=== PATIENT | female | born 1950 | race African-American/Black ===

== ENCOUNTER 2017-12-28 20:55 | Observation (INO) | payer OTHER ==
[~2017-12-28] VITALS: Ht 160 cm; Wt 131.8 kg
--- NOTE | ~2017-12-28 | OP ---
PATIENT NAME: PEDRO MARTÍNEZ MEDICAL RECORD: [id number] :[birth year] LOCATION:[facility] ADMISSION DATE:12/28/17 SURGEON: ANDERSON BANKS MD DATE OF OPERATION: 12/29/2017 PROCEDURES: 1. Left heart catheterization. 2. Selective coronary angiography. 3. Left ventriculogram. INDICATION: Chest pain, compatible with angina. PROCEDURE IN DETAIL: After informed consent was obtained with detailed description of risks and benefits as well as alternative therapies, the patient elected to proceed with angiogram and heart catheterization. The right femoral area was prepped and draped in normal sterile fashion. Right femoral artery was cannulated via modified Seldinger technique with placement of 6-Faroese sheath. All catheters were exchanged through this sheath. FINDINGS: The left ventriculogram was performed in standard 30-degree LENNON view, reveals good cardiac wall motion throughout all segments. Overall ejection fraction estimated at 60%. SELECTIVE CORONARY ANGIOGRAPHY: Left main, left anterior descending, left circumflex, and right coronary artery are all smooth-walled vessels with no angiographic evidence of coronary disease. OVERALL IMPRESSION: 1. No angiographic evidence of coronary disease. 2. Normal left heart pressures. 3. Normal left ventricular systolic function. Chest pain is noncardiac in etiology. No further cardiac workup needs to be ascertained. TRANSINT:[id number] Voice Confirmation ID: [id number] DOCUMENT ID: [id number] ANDERSON BANKS MD at 1950 CC: [id number] DICTATION DATE: 12/29/17 1402 RESTAURANT AREA DIRECTOR: 12/29/17 1411 DIS IN 12/29/17 [place] [id number] [place] [id number]
--- NOTE | ~2017-12-28 | HEMODYNAMI ---
PATIENT:PEDRO MARTÍNEZ MEDICAL RECORD: [id number] : 50 LOCATION:[facility] D.2107 ADMISSION DATE: 12/28/17 Generatedon:12/29/201714:04 Patient name: PEDRO MARTÍNEZ Patient #: [id number] SSN: DO B: 1950 Date of study: 12/29/2017 Page: Of Hemodynamic Procedure Report Patient Data Patient Demographics Procedure consent was obtained First Name: PEDRO Gender: Female Last Name: MAUIRCIO : 1950 [facility] Initial: LEATHA Age: 67 year(s) Patient #: [id number] Race: Black Additional ID: [id number] Contact details [address]: [address] [place] [address] State: [place] City: [place] Zip code: [address] Admission Admission Data Admission Date: 12/28/2017 Admission Time: 23:11 Room #: D2107 Height (in.): 62.99 BSA: 2.26 (m2) Height (cm.): 160 BMI: 51.17 (kg/m2) Weight (lbs.): 288.81 Weight (kg.): 131 Lab Results Lab Result Date: 12/29/2017 Lab Result Time: 0:00 Biochemistry Name Units Result Min Max BUN mg/dl 29 --(----)-* 7 18 Creatinine mg/dl 2 --(----)-* 0.6 1.3 CBC Name Units Result Min Max Hemoglobin g/dl 12.3 *-(----)-- 13.5 17.5 Procedure Procedure Types Cath Procedure Diagnostic Procedure LHC LHC w/Coronaries Procedure Description Procedure Date Procedure Date: 12/29/2017 Procedure Start Time: 13:41 Procedure End Time: 14:02 Procedure Staff Name Function Alessio Lopez MD Performing Physician Romina Varghese RT Monitor Aguilar Gunter RN Nurse Karlene Rizo RN Nurse Romina Varghese RT Scrub Procedure Data Cath Procedure Fluoroscopy Diagnostic fluoroscopy Total fluoroscopy Time: 2.8 time: 2.8 min min Diagnostic fluoroscopy Total fluoroscopy dose: 741 dose: 741 mGy mGy Contrast Material Contrast Material Type Amount (ml) Isovue 300 86 Entry Location Entry Primary Successful Side Size Upsize Upsize Entry Closure Stoll ccessful Closure Location (Fr) 1 (Fr) 2 (Fr) Remarks Device Remarks Radial Right 6 Fr Mechanical TR artery Short Compression Femoral Right 5 Fr Exoseal artery Estimated blood loss: 10 ml Diagnostic catheters Device Type Used For End Catheter Placement DIAGNOSTIC [place] 110cm 5 Procedure Fr catheter ([id number]) MULTIPACK Pigtail 5 Fr Procedure catheter MULTIPACK JL 4.0 5Fr Procedure catheter MULTIPACK 3DRC 5Fr Procedure catheter DIAGNOSTIC AR 2 MOD 5 Fr Procedure catheter ([id number]) Procedure Complications No complications Procedure Medications Medication Administration Route Dosage Oxygen etCO2 Nasal cannula 2 l/min Lidocaine 2% added to field 20 Heparin Flush Bag added to field 2 bags (1000units/500ml NS) 0.9% NaCl I.V. 100 ml/hr Radial Cocktail I.A. 1 syringe (Verapomil 2mg/Nitro 400mcg/Heparin 1500units) Versed I.V. 1 mg Fentanyl I.V. 100 mcg Versed I.V. 1 mg Fentanyl I.V. 50 mcg Fentanyl I.V. 50 mcg Hemodynamics Rest BSA: 2.26 (m2) O2 Consumption: Estimated: 223.66 (ml/min) O2 Consumption indexed : Estimated:98.96 (ml/min/m) Heart Rate: 86 (bpm) Snapshots Pre Cath Intra NCS Post Cath Vital Signs Time Heart Resp SPO2 etCO2 NIBP (mmHg) Rhythm Pain Sedation Rate (ipm) (%) (mmHg) Status Level (bpm) 13:36:51 88 12 94 26.9 161/96(130) NSR 0 (11) 10(A) , No pain 13:42:06 85 12 99 24.7 147/98(117) NSR 0 (11) 10(A) , No pain 13:47:14 86 14 98 23.9 139/98(119) NSR 0 (11) 9(A) , No pain 13:51:18 90 29 96 31.4 119/96(112) NSR 0 (11) 9(A) , No pain 13:55:13 89 14 94 17.2 130/96(125) NSR 0 (11) 9(A) , No pain 13:59:13 89 18 94 41.9 126/92(119) NSR 0 (11) 10(A) , No pain Medications Time Medication Route Dose Verified Delivered Reason Notes Effectiveness by by 13:36:07 Oxygen etCO2 2 l/min Alessio Soler used for Nasal John Rizo RN procedure cannula 13:36:14 Lidocaine 2% added 20ml Alessio Mccallum for local to vial John Lopez MD anesthetic field 13:36:24 Heparin Flush added 2 bags Alessio Mccallum used for Bag to John Lopez MD procedure (1000units/500ml field NS) 13:36:34 0.9% NaCl I.V. 100 Alessio Soler Per ml/hr John Rizo RN physician 13:43:36 Radial Cocktail I.A. 1 Alessio Mccallum for (Verapomil syringe John Lopez MD vasodilation 2mg/Nitro 400mcg/Heparin 1500units) 13:43:42 Versed I.V. 1 mg Alessio Soler for sedation John Rizo RN 13:43:47 Fentanyl I.V. 100 mcg Alessio Soler for sedation John Rizo RN 13:46:10 Versed I.V. 1 mg Alessio Soler for sedation John Rizo RN 13:46:14 Fentanyl I.V. 50 mcg Alessio Soler for sedation John Rizo RN 13:54:15 Fentanyl I.V. 50 mcg Alessio Soler for sedation John Rizo RN Procedure Log Time Note 12:50:47 Diagnostic Cath status Elective 12:50:50 Romina Varghese RT(R) sent for patient. Start room use. 12:50:52 Time tracking: Regular hours (M-F 7:00 - 5:00) 12:50:57 Plan of Care:Hemodynamics will remain stable., Cardiac rhythm will remain stable., Comfort level will be maintained., Respiratory function will remain adequate., Patient/ family verbilizes understanding of procedure., Procedure tolerated without complication., Recovers from procedure without complications.. 12:51:08 Patient received from Med II to [facility] 2 Alert and oriented. Tansferred to table in Supine position. 12:52:29 Patient Height : 62.99 inches 12:52:33 Patient Weight : 288.81 lbs 12:52:59 Lab Result : BUN 29 mg/dl 12:52:59 Lab Result : Hemoglobin 12.3 g/dl 12:52:59 Lab Result : Creatinine 2 mg/dl 13:19:37 Warm blankets applied, and evrona hugger turned on for patient comfort. 13:19:37 Correct patient and procedure confirmed by team. 13:19:39 Signed procedure consent form obtained from patient. 13:19:40 ECG and BP/O2 sat monitors applied to patient. 13:35:47 Vital chart was started 13:36:07 Oxygen 2 l/min etCO2 Nasal cannula was administered by Karlene Rizo RN; used for procedure; 13:36:14 Lidocaine 2% 20ml vial added to field was administered by Alessio Lopez MD; for local anesthetic; 13:36:24 Heparin Flush Bag (1000units/500ml NS) 2 bags added to field was administered by Alessio Lopez MD; used for procedure; 13:36:34 0.9% NaCl 100 ml/hr I.V. was administered by Karlene Rizo RN; Per physician; 13:40:52 Baseline sample Acquired. 13:40:54 Baseline sample Acquired. 13:40:56 Full Disclosure recording started 13:41:03 H&P Date Dictated: 12/28/2017 Within 30 days and on chart.. 13:41:05 Pre-procedure instructions explained to patient. 13:41:07 Family in patients room. 13:41:10 Patient NPO since Midnight. 13:41:13 Is the patient allergic to Iodine/contrast media? No. 13:41:16 Was the patient premedicated? Yes 13:41:17 Is patient on blood thinner?Yes 13:41:27 Physician paged 13:41:28 Physician arrived 13:41:28 --------ALL STOP TIME OUT------ 13:41:29 Final Timeout: patient, procedure, and site verified with staff and physician. All members of the team are in agreement. 13:41:31 Right Radial & Right Groin site verified by team. 13:41:35 Physical assessment completed. ASA score P 2 - A patient with mild systemic disease as per Alessio Lopez MD. 13:41:39 Sedation plan: IV Moderate Sedation Medication:Versed, Fentanyl 13:41:53 Procedure started. 13:41:58 Local anesthetic to right radial artery with Lidocaine 2% by Alessio Lopez MD.INITIAL ACCESS ONLY 13:42:43 Snore? Yes 13:42:45 Sleep apnea? Yes 13:42:53 Dentures? No ? 13:43:03 IV patent on arrival in right forearm with 0.9% NaCl at [facility]. 13:43:11 Right Radial & Right Groin area was prepped with chlora-prep and draped in sterile fashion 13:43:13 Alarms reviewed by R. N. 13:43:13 Sharps counted by scrub and verified by R.N. 13:43:26 A 6 Fr Short sheath was inserted into the Right Radial artery 13:43:36 Radial Cocktail (Verapomil 2mg/Nitro 400mcg/Heparin 1500units) 1 syringe I.A. was administered by Alessio Lopez MD; for vasodilation; 13:43:42 Versed 1 mg I.V. was administered by Karlene Rizo RN; for sedation; 13:43:47 Fentanyl 100 mcg I.V. was administered by Karlene Rizo RN; for sedation; 13:43:54 Use device set Radial Dx or PCI 13:43:57 ACIST Syringe (10435) opened to sterile field. 13:43:57 Medline Cath Pack ([id number]) opened to sterile field. 13:43:58 Bag Decanter (2002) opened to sterile field. 13:43:58 DIAGNOSTIC WIRE .035 260cm J wire (980777) opened to sterile field. 13:43:59 ACIST Hand Control (52575) opened to sterile field. 13:44:00 ACIST Manifold (34516) opened to sterile field. 13:44:01 Tegaderm 4 x 4 (1626W) opened to sterile field. 13:44:02 MBrace Wrist Support ([id number]) opened to sterile field. 13:44:03 NEEDLE Cook 21G 4cm Radial (S27018) opened to sterile field. 13:44:06 SHEATH 6Fr Prelude Radial ([id number]) opened to sterile field. 13:44:15 A DIAGNOSTIC [place] 110cm 5 Fr catheter (444275) was advanced over the wire and used for Procedure. 13:44:44 unable to go radial 13:45:18 Use device set Femoral Dx 13:45:21 SHEATH Prelude 5Fr 0.035 (UFZ-3Z-20-035) opened to sterile field. 13:45:36 DIAGNOSTIC Multipack 5Fr catheter set (RT2478) opened to sterile field. 13:45:45 Local anesthetic to right femoral artery with Lidocaine 2% by Alessio Lopez MD.ADDITIONAL ACCESS 13:45:58 A 5 Fr sheath was inserted into the Right Femoral artery 13:46:10 Versed 1 mg I.V. was administered by Karlene Rizo RN; for sedation; 13:46:14 Fentanyl 50 mcg I.V. was administered by Karlene Rizo RN; for sedation; 13:53:17 A MULTIPACK Pigtail 5 Fr catheter was advanced over the wire and used for Procedure. 13:53:23 EF : 60 % 13:53:41 Catheter removed. 13:53:51 A MULTIPACK JL 4.0 5Fr catheter was advanced over the wire and used for Procedure. 13:54:15 Fentanyl 50 mcg I.V. was administered by Karlene Rizo RN; for sedation; 13:54:39 LCA angiography performed. 13:55:29 A MULTIPACK 3DRC 5Fr catheter was advanced over the wire and used for Procedure. 13:56:42 Catheter removed. 13:56:56 A DIAGNOSTIC AR 2 MOD 5 Fr catheter ([id number]) was advanced over the wire and used for Procedure. 13:57:24 RCA angiography performed. 13:57:28 Catheter removed. 13:57:42 EXOSEAL 5Fr (EX500) opened to sterile field. 13:57:56 Sheath removed intact; hemostasis achieved with Exoseal to the Right Femoral artery. 13:58:12 Sheath removed intact; hemostasis achieved with Mechanical Compression to the Right Radial artery. 13:58:19 Procedure ended.(Physican Out) 13:59:34 Fluoroscopy time 02.80 minutes. 13:59:38 Fluoroscopy dose: 741 mGy 13:59:38 Flurop Dose total: 741 13:59:42 Contrast amount:Isovue 300 86ml. 13:59:43 Sharps counted by scrub and verified by R.N. 13:59:53 TR band inflated with 12cc of air. 13:59:54 Insertion/operative site no bleeding no hematoma. 13:59:59 Post-op/insertion site Right Femoral artery dressed using a 4 x 4 and Tegaderm. 14:00:01 Post Procedure Pulses reassessed and unchanged 14:00:09 Post-procedure physical assessment completed. ASA score P 2 - A patient with mild systemic disease as per Alessio Lopez MD. 14:00:12 Post procedure rhythm: unchanged. 14:00:16 Estimated blood loss: 10 ml 14:00:18 Post procedure instruction explained to patient.Patient verbalizes understanding. 14:00:33 Procedure and supply charges have been captured, reviewed, submitted and are correct. 14:01:31 Procedure Complication : No complications 14:01:34 Vital chart was stopped 14:01:53 See physician's report for complete and final results. 14:01:55 Report given to Pre/Post Procedure Room. 14:01:59 Patient transfered to [facility] with Bed. 14:02:01 Procedure ended. 14:02:01 Full Disclosure recording stopped 14:02:04 End room use (Document Last) Device Usage Item Name Manufacture Quantity Catalog Number Hospital Part Current M inimal Lot# / Charge Number Stock Stock Serial# Code ACIST Syringe Acist 1 38473 694148 924927 337974 2 0 (86833) [employer] Medline Cath Cardinal 1 [id number] 858546 [address] [facility] Health ([id number]) Bag Decanter Microtek 1 2001S 195090 68942 328251 5 (2001S) Medical Inc. DIAGNOSTIC WIRE [place] 1 490803 847797 223912 337732 3 0 .035 260cm J wire (739954) ACIST Hand Acist 1 40680 407806 061587 166475 5 Control (39875) [employer] ACIST Manifold Acist 1 36917 291413 399445 683655 5 (84183) [employer] Inc Tegaderm 4 x 4 3M 1 1626W 914018 175019 396460 5 (1626W) MBrace Wrist Advanced 1 140-0250-00 517695 18554 175832 5 Support Vascular ([id number]) Dynamics NEEDLE Cook 21G Cook Medical 1 P75699 928816 412834 587935 5 4cm Radial (O62129) SHEATH 6Fr Merit 1 [id number] 192573 686697 763031 5 Prelude Radial Medical ([id number]) DIAGNOSTIC Terumo 1 71-5284 798716 278825 771582 5 [place] 110cm 5 Fr catheter (793083) SHEATH Prelude Merit 1 [id number] 546526 361214 119168 5 5Fr 0.035 Medical ([id number]-6R-78-035) DIAGNOSTIC Cardinal 1 XS0089 788774 69973 387713 3 0 Multipack 5Fr Health catheter set (VT7520) MULTIPACK Cardinal 1 769304 5 Pigtail 5 Fr Health catheter MULTIPACK JL Cardinal 1 858496 5 4.0 5Fr Health catheter MULTIPACK 3DRC Cardinal 1 651405 5 5Fr catheter Health DIAGNOSTIC AR 2 Cardinal 1 [id number] 122192 744163 992995 2 0 MOD 5 Fr Health catheter (180773V) EXOSEAL 5Fr Cardinal 1 EX500 106795 756106 183503 1 0 (EX500) Health Signature Audit [place] Stage Time Signature Unsigned Intra-Procedure 12/29/2017 Romina Varghese 2:03:56 PM RT(R) Signatures Monitor : Romina Varghese Signature : RT Date : Time : [place] [address] [place] [address]
--- NOTE | ~2017-12-28 | DS ---
PATIENT:PEDRO MARTÍNEZ :[birth year] MEDICAL RECORD: [id number] DISCHARGE SUMMARY ADMISSION DATE: 12/28/17 DISCHARGE DATE: 12/29/17 DIAGNOSES: 1. Chest pain. 2. Normal cardiac catheterization. 3. Hypertension. HOSPITAL COURSE: Mrs. Martínez presents with chest pain; however, cardiac catheterization was normal. Discharged home with no change in her medications. Follow up with her primary care physician. TRANSINT:[id number] Voice Confirmation ID: [id number] DOCUMENT ID: [id number] ANDERSON BANKS MD at 1950 CC: [id number] DICTATION DATE: 12/29/17 1401 VEHICLE OPERATOR: 12/29/17 1433 DIS IN 12/29/17 [place] [id number] [place] [address]
[~2017-12-28 20:55] MED LIST: CELEXA20 MG PO; FLOVENT DI50 MCG/DIS INH; FLOVENT DISKU250 MCG INH; LASIX40 MG PO; METOLAZONE5 MG PO; PEPCID40 MG PO; POTASSIUM CHLO10 ME1; PRAVACHOL80 MG PO; PRILOSEC20 MG PO; ROBAXIN500 MG PO; TOPROL XL25 MG PO; TYLENOL W/CODEI1 TAB PO; ZYLOPRIM100 MG PO
[2017-12-28 21:24] LABS: HEMATOCRIT 37.8 % (36.0-48.0); HEMOGLOBIN 12.3 g/dL (12-16); LYMPHOCYTES 40.6 % (15-50); MCH 28.3 pg (26.0-34.0); MCHC 32.5 g/dL (31.0-37.0); MCV 86.9 fL (80.0-100.0); MEAN PLATELET VOLUME 9.2 fL (7.4-10.4); NEUTROPHILS 50.2 % (40-80); PLATELET COUNT 302 10x3/uL (130-400); RBC 4.35 10x6/uL (4.00-5.40); WBC 9.6 10x3/uL (4.8-10.8)
[2017-12-28 21:38] LABS: APTT 27.7 SECONDS (22.8-39.4); INR 0.91 (0.85-1.17); PROTIME 11.8 SECONDS (11.6-15.0)
[2017-12-28 22:17] LABS: ALBUMIN 3.2 g/dL (3.4-5.0); ALKALINE PHOSPHATASE 100 U/L (46-116); ALT (SGPT) 16 U/L (10-68); BILIRUBIN - TOTAL 0.27 mg/dL (0.2-1.3); CALC OSMOLALITY 290 mosm/kg (275-300); CALCIUM 9.6 mg/dL (8.5-10.1); CARBON DIOXIDE 30.6 mmol/L (21.0-32.0); CHLORIDE - SERUM 102 mmol/L (98-107); GLUCOSE 132 mg/dL (74-106); POTASSIUM - SERUM 3.3 mmol/L (3.5-5.1); PROTEIN - SERUM 8.5 g/dL (6.4-8.2); SODIUM 142 mmol/L (136-145); UREA NITROGEN 29 mg/dL (7-18); eGFR NON AFRICAN AMERICAN 26 mL/min (90-120)
[2017-12-28 22:20] LABS: CREATINE KINASE 95 UL (21-215)
[2017-12-28 22:21] LABS: TROPONIN-I < 0.017 ng/mL (0.000-0.060)
[2017-12-28 23:09] VITALS: BP 133/80
[2017-12-29] MEDS ORDERED: HYDROCODONE-APA1 TAB PO (01:29)
[2017-12-29] MEDS ORDERED: ZYLOPRIM100 MG PO (01:29)
[2017-12-29] MEDS ORDERED: COZAAR50 MG PO (01:33)
[2017-12-29] MEDS ORDERED: BACLOFEN10 MG PO (01:33)
[2017-12-29] MEDS ORDERED: FERROUS SULFAT325 MG PO (01:34)
[2017-12-29] MEDS ORDERED: XANAX0.5 MG PO (01:34)
[2017-12-29 04:00] VITALS: BP 165/87
[2017-12-29 07:22] VITALS: BMI 51.4
[2017-12-29 08:56] VITALS: Ht 160 cm; Wt 131.8 kg
[2017-12-29 09:30] VITALS: BP 154/91
[2017-12-29 09:55] LABS: HEMATOCRIT 35.1 % (36.0-48.0); HEMOGLOBIN 11.3 g/dL (12-16); LYMPHOCYTES 34.8 % (15-50); MCH 28.4 pg (26.0-34.0); MCHC 32.2 g/dL (31.0-37.0); MCV 88.2 fL (80.0-100.0); MEAN PLATELET VOLUME 9.3 fL (7.4-10.4); PLATELET COUNT 266 10x3/uL (130-400); RBC 3.98 10x6/uL (4.00-5.40); RDW 14.2 % (11.5-14.5)
[2017-12-29 10:28] LABS: CALC OSMOLALITY 288 mosm/kg (275-300); CALCIUM 8.5 mg/dL (8.5-10.1); CARBON DIOXIDE 32.8 mmol/L (21.0-32.0); CHLORIDE - SERUM 103 mmol/L (98-107); CREATINE KINASE 68 UL (21-215); GLUCOSE 138 mg/dL (74-106); POTASSIUM - SERUM 3.9 mmol/L (3.5-5.1); SODIUM 141 mmol/L (136-145); TROPONIN-I < 0.017 ng/mL (0.000-0.060); UREA NITROGEN 30 mg/dL (7-18); eGFR NON AFRICAN AMERICAN 26 mL/min (90-120)
== END 2017-12-29 16:45 | disposition home or self-care (01) ==
LOC: D.ER 20:55 → OBSVTIME 23:11 → D.M2 23:11 → D.EDHOLD 23:11 → D.M2 23:30 → D.CLR 12-29 15:45
PROVIDERS: Family Medicine; Internal Medicine Interventional Cardiology
DX: R07.89 Other chest pain (principal); I10 Essential (primary) hypertension

== ENCOUNTER 2018-05-09 23:07 | Emergency (ER) | payer OTHER ==
[~2018-05-09] VITALS: Ht 160 cm; Wt 133.2 kg
[~2018-05-09 23:07] MED LIST changes: +BACLOFEN10 MG PO; +COZAAR50 MG PO; +FERROUS SULFAT325 MG PO; +HYDROCODONE-APA1 TAB PO; +XANAX0.5 MG PO
[2018-05-09 23:11] VITALS: Ht 160 cm; Wt 133.2 kg
[2018-05-10] MEDS ORDERED: ULTRAM50 MG PO (00:37)
[2018-05-10] MEDS ORDERED: VALIUM 2 MG TAB2 MG PO (00:37)
[2018-05-10 01:54] VITALS: BP 138/82
== END 2018-05-10 01:12 | disposition home or self-care (01) ==
LOC: D.ER 23:07
DX: S16.1XXA Strain of muscle, fascia and tendon at neck level, initial encounter (principal); X58.XXXA Exposure to other specified factors, initial encounter; Y93.89 Activity, other specified; Y92.89 Other specified places as the place of occurrence of the external cause; M62.838 Other muscle spasm; I10 Essential (primary) hypertension